=== PATIENT | female | born 1955 | race Caucasian/White ===

== ENCOUNTER 2022-08-14 08:21 | Outpatient (CLI) | payer MEDICARE, SELFPAY ==
[2022-08-14 13:55] LABS: Chloride* 107 mmol/L (96-114); Sodium* 139 mmol/L (135-149)
[2022-08-14 13:56] LABS: Albumin* 4.1 g/dL (3.3-5.0); Potassium* 4.9 mmol/L (3.6-5.1)
[2022-08-14 13:58] LABS: Cholesterol* 198 mg/dL (90-199); Creatinine* 0.9 mg/dL (0.5-1.5); Estimated Glomerular Filt Rate 70 ml/min
[2022-08-14 13:59] LABS: Alanine Aminotransferase* 22 U/L (4-35); Alkaline Phosphatase* 102 U/L (40-150); Aspartate Amino Transferase* 23 U/L (12-35); Bilirubin Total* 0.6 mg/dL (0.1-1.5); Blood Urea Nitrogen* 20 mg/dL (7-30); Calcium* 9.5 mg/dL (8.4-10.6); Carbon Dioxide* 25 mmol/L (20-32); Glucose* 109 mg/dL (60-115); HDL Cholesterol* 65 mg/dL (>=50); LDL Cholesterol Calculated 111 mg/dL (<100); Total Protein* 6.7 g/dL (6.0-8.3); Triglycerides* 112 mg/dL (40-149)
[2022-08-14 15:54] LABS: Free T4 Free Thyroxine* 1.36 ng/dL (0.70-1.85)
== END 2022-08-14 08:22 | disposition home or self-care (01) ==
LOC: FRMREF 08:22
PROVIDERS: PCP Physician Assistant Medical; Visit Provider Physician Assistant Medical
DX: Z00.00 Encounter for general adult medical examination without abnormal findings (principal); Z13.6 Encounter for screening for cardiovascular disorders; Z13.29 Encounter for screening for other suspected endocrine disorder; E66.01 Morbid (severe) obesity due to excess calories; R32 Unspecified urinary incontinence; Z98.84 Bariatric surgery status; E03.8 Other specified hypothyroidism
CPT/HCPCS: 80053; 80061; 84439; 84443

== ENCOUNTER 2023-02-05 09:40 | Outpatient (CLI) | payer MEDICARE, SELFPAY | END 2023-02-05 09:41 | disposition home or self-care (01) | LOC: NFLDREF 22:44 | PROVIDERS: PCP Physician Assistant Medical; Referring Provider Physician Assistant Medical; Visit Provider Physician Assistant Medical | DX: E03.8 Other specified hypothyroidism (principal) | CPT/HCPCS: 84443 ==